=== PATIENT | female | born 1990 | race Caucasian/White ===

== ENCOUNTER 2017-09-30 13:18 | Emergency (ER) | payer SELFPAY ==
[~2017-09-30] VITALS: Ht 162.6 cm; Wt 53.0 kg
[2017-09-30 13:20] VITALS: TEMP 36.9
[2017-09-30 13:37] VITALS: O2SAT 99
[2017-09-30] MEDS ORDERED: SODIUM CHLORIDE 0.9% 1000ML 1,000 ML IV STA (13:47)
[2017-09-30 13:52] VITALS: Ht 162.6 cm; Wt 53.0 kg
[2017-09-30 14:24] LABS: BASO % 0.7 %; BASO ABS # 0.04 K/uL (0-0.2); COMPLETE YES; EOS % 3.7 %; HEMATOCRIT 41.2 % (37-47); IG% 0.2 %; LYMPH % 30.3 %; MEAN CELL VOLUME 92.2 fL (80-100); MEAN CORPUSCULAR HGB CONC 34.7 g/dl (32-36); MEAN PLATELET VOLUME 9.5 fL (7.4-10.4); MONO % 7.1 %; PLATELET COUNT 246 K/uL (130-400); RED BLOOD COUNT 4.47 M/uL (4.2-5.4); WHITE BLOOD COUNT 5.95 K/uL (4.8-10.8)
[2017-09-30 14:28] LABS: URINE APPEARANCE CLOUDY (CLEAR); URINE BILIRUBIN NEG (NEG); URINE COLOR YELLOW; URINE EPITHELIAL CELL AUTO >30 /lpf (0-5); URINE NITRITE NEG (NEG); URINE PH 7.5 (4.5-7.5); URINE SPECIFIC GRAVITY 1.015 (1.000-1.030); UROBILINOGEN NEG (NEG)
--- NOTE | 2017-09-30 14:33 | EMERGENCY ROOM VISIT NOTE ---
History First contact with patient: 13:39 Chief Complaint: ILLNESS Stated Complaint: CP, SOB, CONGESTION, JUAREZ, DIZZY History of Present Illness The patient is a 27 year old female who presents to the Emergency Room with complaints of cough and congestion for the past 3 days, now complaining of right -sided rib pain that is worse with coughing and movement, shortness of breath, and lightheadedness today. Patient states that she felt like she might pass out a few times after coughing. She states her symptoms started with upper respiratory symptoms of sinus congestion, runny nose, irritated throat, and quickly moved into her chest with a deep cough. She states the cough has been nonproductive, she denies any hemoptysis. She has had some chills, but is unsure about fevers as she does not have a thermometer. She has positive sick contacts with similar symptoms. She does have a history of pneumonia a few years ago, states that this feels the same. She is a smoker one pack per day, but states she has not had any cigarettes for the past 2 days because of her symptoms. She denies any headaches, neck pain or stiffness, back pain, abdominal pain, nausea or vomiting, diarrhea, constipation, blood in the stool, urinary symptoms, rash. She denies any exogenous estrogen use, recent long travel, leg pain or swelling, or history of blood clots. Review of Systems A complete 10 point review of systems was reviewed with the patient with pertinent positives and negatives as per history of present illness. All else were negative. Past Medical/Surgical History Previous pneumonia, no other significant medical history Social History Smoking Status: Current Every Day Smoker Current/Historical Medications Scheduled Azithromycin (Zithromax Z-Simón), 1 PKT PO UD Allergies NKA Physical Exam Vital Signs Date Time Temp Pulse Resp B/P (MAP) Pulse Ox O2 Delivery O2 Flow Rate FiO2 09/30/17 14:52 74 18 98/66 100 Room Air 09/30/17 13:44 90 09/30/17 13:37 99 Room Air 09/30/17 13:20 36.9 116 16 111/76 100 Room Air Physical Exam CONSTITUTIONAL: No acute distress, nontoxic appearing. Mildly dehydrated. Strong smell of body odor and cigarette smoke, slightly unkempt appearance. Alert and oriented X 4 with normal affect. HEENT: Normocephalic, atraumatic. Pupils equal, round and reactive to light, EOMI. TMs normal. Pharynx normal. Tacky mucous membranes. NECK: Supple, full active range of motion without discomfort. RESPIRATORY: Clear to auscultation bilaterally with no wheezing, crackles, rhonchi or stridor. Equal expansion bilaterally. CARDIOVASCULAR: Regular rate and rhythm with no murmurs, rubs or gallops. Normal peripheral perfusion. No edema. CHEST WALL: Tenderness to palpation of the anterior and lateral chest wall between ribs 3 through 7, reproduces complaint. Tenderness bilaterally along the bottom anterior edge of the rib cage. GASTROINTESTINAL: Soft, nontender, nondistended. Bowel sounds present in all quadrants. MUSCULOSKELETAL: Full range of motion of all joints without discomfort. No swelling or tenderness noted to the calves bilaterally. INTEGUMENTARY: No rash or other significant dermatologic conditions noted. NEUROLOGIC: Cranial nerves II-XII grossly intact. No focal neurologic deficits noted. Medical Decision & Procedures ER Provider Diagnostic Interpretation: CHEST 2 VIEWS ROUTINE HISTORY: Right-sided chest pain. COMPARISON: None. FINDINGS: The lungs are clear. Cardiac silhouette is normal in size. No pleural effusions. No pneumothorax. IMPRESSION: No acute process. Laboratory Results 09/30/17 13:47 Red Blood Count 4.47, Mean Corpuscular Volume 92.2, Mean Corpuscular Hemoglobin 32.0, Mean Corpuscular Hemoglobin Concent 34.7, Mean Platelet Volume 9.5, Neutrophils (%) (Auto) 58.0, Lymphocytes (%) (Auto) 30.3, Monocytes (%) (Auto) 7.1, Eosinophils (%) (Auto) 3.7, Basophils (%) (Auto) 0.7, Neutrophils # (Auto) 3.46, Lymphocytes # (Auto) 1.80, Monocytes # (Auto) 0.42, Eosinophils # (Auto) 0.22, Basophils # (Auto) 0.04 09/30/17 13:47 Test 09/30/17 13:47 09/30/17 13:55 White Blood Count 5.95 K/uL (4.8-10.8) Red Blood Count 4.47 M/uL (4.2-5.4) Hemoglobin 14.3 g/dL (12.0-16.0) Hematocrit 41.2 % (37-47) Mean Corpuscular Volume 92.2 fL (80-100) Mean Corpuscular Hemoglobin 32.0 pg (25-34) Mean Corpuscular Hemoglobin Concent 34.7 g/dl (32-36) Platelet Count 246 K/uL (130-400) Mean Platelet Volume 9.5 fL (7.4-10.4) Neutrophils (%) (Auto) 58.0 % Lymphocytes (%) (Auto) 30.3 % Monocytes (%) (Auto) 7.1 % Eosinophils (%) (Auto) 3.7 % Basophils (%) (Auto) 0.7 % Neutrophils # (Auto) 3.46 K/uL (1.4-6.5) Lymphocytes # (Auto) 1.80 K/uL (1.2-3.4) Monocytes # (Auto) 0.42 K/uL (0.11-0.59) Eosinophils # (Auto) 0.22 K/uL (0-0.5) Basophils # (Auto) 0.04 K/uL (0-0.2) RDW Standard Deviation 42.8 fL (36.4-46.3) RDW Coefficient of Variation 12.6 % (11.5-14.5) Immature Granulocyte % (Auto) 0.2 % Immature Granulocyte # (Auto) 0.01 K/uL (0.00-0.02) Anion Gap 9.0 mmol/L (3-11) Est Creatinine Clear Calc Drug Dose 115.9 ml/min Estimated GFR () 144.0 Estimated GFR (Non- 124.2 BUN/Creatinine Ratio 13.9 (10-20) Calcium Level 9.1 mg/dl (8.5-10.1) Total Bilirubin 0.3 mg/dl (0.2-1) Aspartate Amino Transf (AST/SGOT) 13 U/L (15-37) Alanine Aminotransferase (ALT/SGPT) 24 U/L (12-78) Alkaline Phosphatase 84 U/L (45-117) Total Protein 7.9 gm/dl (6.4-8.2) Albumin 4.0 gm/dl (3.4-5.0) Globulin 3.9 gm/dl (2.5-4.0) Albumin/Globulin Ratio 1.0 (0.9-2) Bedside D-Dimer 294 ng/mlFEU (0-450) Urine Color YELLOW Urine Appearance CLOUDY (CLEAR) Urine pH 7.5 (4.5-7.5) Urine Specific [place] 1.015 (1.000-1.030) Urine Protein NEG (NEG) Urine Glucose (UA) NEG (NEG) Urine Ketones NEG (NEG) Urine Occult Blood NEG (NEG) Urine Nitrite NEG (NEG) Urine Bilirubin NEG (NEG) Urine Urobilinogen NEG (NEG) Urine Leukocyte Esterase NEG (NEG) Urine WBC (Auto) 5-10 /hpf (0-5) Urine RBC (Auto) 0-4 /hpf (0-4) Urine Hyaline Casts (Auto) 1-5 /lpf (0-5) Urine Epithelial Cells (Auto) >30 /lpf (0-5) Urine Bacteria (Auto) 2+ (NEG) Urine Test NEG (NEG) Medications Administered Medications (Trade) Dose Ordered Sig/Claudy Route Start Time Stop Time Status Last Admin Dose Admin Sodium Chloride 1,000 ml @ 999 mls/hr Q1H1M STAT IV 09/30/17 13:47 09/30/17 14:47 DC 09/30/17 13:58 999 MLS/HR Ketorolac Tromethamine (Toradol Inj) 30 mg STK-MED ONCE .ROUTE 09/30/17 15:02 09/30/17 15:03 DC 09/30/17 15:08 30 MG Albuterol (Ventolin Hfa Inhaler) 60 puffs STK-MED ONCE INH 09/30/17 15:02 09/30/17 15:03 DC 09/30/17 15:08 60 PUFFS ECG Indication: chest pain, SOB/dyspnea, tachycardia Rate (beats per minute): 89 Rhythm: normal sinus Findings: no acute ischemic change, no ectopy Comparison ECG Date: no prior available Medical Decision CC: Patient presenting with complaint of cough, right-sided chest pain, shortness of breath Interpretation of Labs: No leukocytosis, no anemia, no significant electrolyte abnormalities, normal renal function, normal liver enzymes. Negative d-dimer. UA more consistent with contamination than infection. Differential Diagnosis: Includes, but not limited to viral URI, bronchitis, pneumonia, pulmonary embolism, pneumothorax, musculoskeletal pain, costochondritis, pleurisy, among others. Medication Reconciliation: I attest that I have personally reviewed the patient' s current medication list. Vital signs review: I reviewed the patient's vital signs and interpret them as follows: T: Afebrile; BP: Normotensive; HR: Tachycardic; RR: Within normal limits; Pulse Ox: Within normal limits on room air. Blood pressure screening: The patient was found to have normal blood pressure on screening and does not require follow-up for repeat blood pressure check. Summary: Patient was evaluated at bedside, history and physical exam performed. Patient is alert and in no acute distress, resting comfortably in the stretcher , no obvious signs of increased respiratory effort. Patient does have reproducible right-sided chest wall tenderness with palpation. Lungs are clear. Given the patient's precipitating symptoms of URI illness, I feel PE is less likely, however I am unable to apply the PERC rule due to tachycardia, therefore d-dimer was performed. Orders were placed at bedside for labs, UA and urine , IV fluids for hydration, IV Toradol for pain, EKG, chest x-ray to evaluate for pneumonia. Patient discussed with Dr. Mccormack, who agrees with my assessment and plan. Labs reviewed as above, no acute abnormalities. POC d-dimer is negative. EKG shows NSR with no acute ischemic changes noted. Chest x-ray is clear with no evidence of pneumonia. Patient reassessed multiple times throughout ED stay, patient states she is feeling a little bit better after Toradol and albuterol inhaler. Her tachycardia is resolved after IV fluids. I discussed all results with the patient and plan for discharge home, I encouraged her to follow up with the PCP, and she states she does not have one because she does not have any insurance. I discussed with the patient that she could follow up in an urgent care, or she should return to the emergency department for any persistent or worsening symptoms, and discussed strict criteria for return. Patient was counseled on smoking cessation. Due to her history of heavy smoking , she was placed on a Z-Simón, prescription sent to pharmacy. She was also sent home with an albuterol inhaler and instructed on its use. The patient verbalized understanding of all discharge instructions and plan. The patient was discharged home in stable condition and ambulatory. Impression Primary Impression: Costochondritis Additional Impression: Bronchitis, acute Departure Information Dispostion Home / Self-Care Condition GOOD Prescriptions Azithromycin (ZITHROMAX Z-SIMÓN) 250 Mg Tab 1 PKT PO UD for 5 Days, #6 TAB Prov: Yomaira Esparza CRNP 09/30/17 Referrals No Doctor, Assigned (PCP) Patient Instructions ED Upper Resp Infec Abx Tx, My [facility] Additional Instructions You have been evaluated in the emergency department for your cough and chest pain. There is no evidence of pneumonia on your chest x-ray. You are being placed on antibiotics because you are a smoker and at higher risk for infection. You have been prescribed a Z-Simón, which is an antibiotic to be taken for the next 5 days, take as directed on the packaging. All antibiotics have the potential to cause diarrhea. Stop this medication and contact a medical provider if you were to develop any significant adverse side effects including: wheezing, shortness of breath, passing out, vomiting, or a diffuse rash. Always take antibiotics as directed and COMPLETE the ENTIRE course regardless of the improvement of your symptoms. Use the albuterol inhaler TWO puffs every 4 hours as needed for cough, wheezing , chest tightness. You should also use this before bed to help prevent coughing so that you can sleep better at night. For chest pain, you can use the following [id number] medicines (if >12 yo) : - Regular strength (325mg/tab) Tylenol (acetaminophen) 2 tabs every 4-6 hours as needed. Do not exceed 10 tablets in a 24 hour period. Avoid taking more than 3000 mg of Tylenol per day. This includes any other sources of acetaminophen you may take on a regular basis. - Regular strength (200 mg/tab) Advil (ibuprofen) 3 tabs every 6-8 hours as needed. Do not exceed a dose of 2400 mg per day. - For best results, alternate dosing of Tylenol and Advil. Apply heating pad to your right side of your chest to help with discomfort. Drink plenty of fluids to stay well hydrated. Please follow-up with your PCP or at an urgent care in the next few days to be rechecked if your symptoms are not getting any better. Please return to the emergency department if your symptoms worsen over the next 2-3 days despite treatment course outlined above. Return to the emergency department if you develop the following symptoms of: inability to swallow solids , liquids, or drool; excessive wheezing or inability to catch your breath; worsening chest pain, coughing up blood, severe dizziness or passing out; fever or pain that becomes unmanageable with [id number] medications; or any other concerns. Work Instructions Return To Work: 3 days Problem Qualifiers Additional Impression: Bronchitis, acute Bronchitis organism: unspecified organism Qualified Codes: J20.9 - Acute bronchitis, unspecified
[2017-09-30] MEDS ORDERED: KETOROLAC TROMETHAMINE 30 MG/ML VIAL IV STA (14:37)
--- NOTE | 2017-09-30 14:37 | DIAGNOSTIC IMAGING REPORT ---
CHEST 2 VIEWS ROUTINE HISTORY: Right-sided chest pain. COMPARISON: None. FINDINGS: The lungs are clear. Cardiac silhouette is normal in size. No pleural effusions. No pneumothorax. IMPRESSION: No acute process. Electronically signed by: Prudencio Freeman M.D. 09/30/2017 2:36 PM Dictated Date/Time: 09/30/2017 2:34 PM
[2017-09-30 14:40] LABS: BUN/CREATININE RATIO 13.9 (10-20); CALCIUM 9.1 mg/dl (8.5-10.1); CREATININE 0.61 mg/dl (0.60-1.20); POTASSIUM 3.4 mmol/L (3.5-5.1)
[2017-09-30 14:46] LABS: MANUAL MICROSCOPIC REQUIRED? NO; REVIEW REQ? NO
[2017-09-30 14:52] VITALS: BP 98/66; PULSE 74; O2SAT 100
[2017-09-30] MEDS ORDERED: ALBUTEROL HFA 8 GM INHALER INH ONE ×2 (15:00→15:02)
[2017-09-30] MEDS ORDERED: KETOROLAC TROMETHAMINE 30 MG/ML VIAL ONE (15:02)
[2017-09-30] MEDS ORDERED: AZITTAB PO (16:13)
== END 2017-09-30 16:44 | disposition home or self-care (01) ==
LOC: C.EDB 13:20 → C.EDC 16:44
DX: M94.0 Chondrocostal junction syndrome [Tietze] (principal); J20.9 Acute bronchitis, unspecified; F17.210 Nicotine dependence, cigarettes, uncomplicated

== ENCOUNTER 2017-11-02 14:22 | Emergency (ER) | payer SELFPAY ==
[~2017-11-02] VITALS: Ht 160 cm; Wt 52.0 kg
[2017-11-02 14:25] VITALS: TEMP 36.4; Ht 160 cm; Wt 52.0 kg
[2017-11-02] MEDS ORDERED: OXYCODONE HCL IR 5 MG TAB (IMMEDIATE RELEASE) PO STA (14:31)
[2017-11-02] MEDS ORDERED: BACITRACIN OINT 15 GM TUBE EXT ONE (14:45)
[2017-11-02] MEDS ORDERED: OXYC1TAB3 PO (15:03)
[2017-11-02 15:19] VITALS: BP 92/67; PULSE 70; O2SAT 98
--- NOTE | 2017-11-02 16:24 | EMERGENCY ROOM VISIT NOTE ---
History Report prepared by Darryl: Angie Doyle Under the Supervision of: Dr. Oscar Apodaca M.D. First contact with patient: 14:27 Chief Complaint: BURN (MAJOR) Stated Complaint: BURN ON HANDS History of Present Illness The patient is a 27 year old female who presents to the Emergency Room with complaints of an episode of burn to the hands [employer]. The patient was cooking traore on the stove. She jerked the oreilly and some traore grease spilled onto her right hand. She did get some on her left hand. She denies any fever or vomiting. She has had bronchitis in the past. She is otherwise healthy. Her tetanus is up to date. Source of History: patient Onset: [employer] Position: hand (right) Quality: other (burn) Timing: other (episodic) Associated Symptoms: No fevers, No vomiting Review of Systems See HPI for pertinent positives & negatives. A total of 10 systems reviewed and were otherwise negative. Past Medical & Surgical Medical Problems: (1) Bronchitis Family History Cancer Heart disease Social History Smoking Status: Current Every Day Smoker Occupation Status: employed Current/Historical Medications Scheduled PRN Oxycodone Ir (Roxicodone Ir), 5 MG PO Q4H PRN for Pain Allergies Coded Allergies: No Known Allergies (Unverified , 11/02/17) Physical Exam Vital Signs Date Time Temp Pulse Resp B/P (MAP) Pulse Ox O2 Delivery O2 Flow Rate FiO2 11/02/17 15:19 70 16 92/67 98 11/02/17 14:38 97 Room Air 11/02/17 14:25 36.4 103 24 122/96 97 Room Air Physical Exam Constitutional: Vital signs reviewed. Eyes: Pupils are equal round reactive to light. Conjunctiva are noninjected. ENT: Pharynx is clear without erythema or exudate. Mucous membranes are moist. Neck supple without meningeal signs. Respiratory: Clear to auscultation bilaterally. Breath sounds are equal bilaterally. Cardiovascular: Regular rate and rhythm. No rubs or gallops. Musculoskeletal: Right hand 2nd, 3rd, and 4th fingers with noncircumferential partial thickness aviles to the dorsal aspect with ruptured blisters over the 2nd , 3rd, and 4th digits. Minor splashes to the left hand without blistering. Integumentary: See above. Neurological: The patient is awake and alert. No focal deficits. Psychiatric: Anxious, tearful. Medical Decision & Procedures Medications Administered Medications (Trade) Dose Ordered Sig/Claudy Route Start Time Stop Time Status Last Admin Dose Admin Oxycodone HCl (Roxicodone Immediate Rel Tab) 5 mg NOW STAT PO 11/02/17 14:31 11/02/17 14:33 DC 11/02/17 14:36 5 MG Bacitracin (Bacitracin Oint) 1 appln NOW ONCE EXT 11/02/17 14:45 11/02/17 14:46 DC 11/02/17 14:41 1 APPLN ED Course 1429: The patient was evaluated in room A3. A complete history and physical exam was performed. 1431: Oxycodone HCl 5 mg PO. 1437: I reevaluated the patient. Her hand is now soaking in cold water. She feels a lot better and is more calm. She does want us to cut the rings off. 1445: Bacitracin 1 appln EXT. 1500: I reevaluated the patient. She is feeling much better. The rings have been cut off. She will follow up with her doctor in 24-48 hours. I gave her precautions regarding oxycodone. She verbalized agreement and understanding. She will be discharged home with nonadherent dressings and bacitracin. Medical Decision This is a 27-year-old female presents with thermal aviles to her hands. I did perform a limited focused review of portions of the patient's old chart on the electronic medical record. The patient has had no recent pertinent visits to this hospital. I did evaluate the patient as noted above. She does have sternal aviles to both hands. The aviles on her left hand are very minor and do not require any attention. The right hand shows a full-thickness aviles with ruptured blisters over the dorsums of the second to fourth digits. The aviles are not circumferential. She is neurovascularly intact. I did feel debridement of the blisters was indicated at this time. The patient's hand was placed in cold water and she did feel significant relief with this. She was also given an OxyIR. Her tetanus is up-to-date. She was given bacitracin and wound dressings to go home with. She will follow up with her doctor within 24-48 hours for reevaluation. She was discharged with a prescription for OxyIR for breakthrough pain and given precautions regarding this medication. Her rings were removed from the second and fourth digits. [place] Drug Monitoring Program Search Results: patient reviewed within database Drug Monitoring Findings: No matching patients. Medication Reconcilliation Current Medication List: was personally reviewed by me Blood Pressure Screening Patient's blood pressure: Elevated blood pressure Blood pressure disposition: Elevated BP felt to be situational Impression Primary Impression: Partial thickness burn of right hand Scribe Attestation The scribe's documentation has been prepared under my direct and personally reviewed by me in its entirety. I confirm that the note above accurately reflects all work, treatment, procedures, and medical decision making performed by me. Departure Information Dispostion Home / Self-Care Prescriptions Oxycodone Ir (Roxicodone Ir) 5 Mg Tab 5 MG PO Q4H Y for Pain, #20 TAB Prov: Oscar Apodaca M.D. 11/02/17 Referrals No Doctor, Assigned (PCP) Forms HOME CARE DOCUMENTATION FORM, IMPORTANT VISIT INFORMATION Patient Instructions ED Burn D 2nd, My [facility] Additional Instructions You have been examined and treated today on an emergency basis only. This is not a substitute for, or an effort to provide, complete comprehensive medical care. It is impossible to recognize and treat all injuries or illnesses in a single emergency department visit. It is therefore important that you follow up closely with your physician within 24-48 hours. Call as soon as possible for an appointment. Return for worsening symptoms or if you develop fever, vomiting , pus like discharge from your fingers or any other concerning symptoms. Use bacitracin and nonadherant dressings twice a day Problem Qualifiers Primary Impression: Partial thickness burn of right hand Encounter type: initial encounter Burn of hand location: multiple sites Qualified Codes: T23.201A - Burn of second degree of right hand, unspecified site, initial encounter
== END 2017-11-02 15:20 | disposition home or self-care (01) ==
LOC: C.EDB 14:23 → C.EDA 15:20
DX: T23.141A Burn of first degree of multiple right fingers (nail), including thumb, initial encounter (principal); T23.142A Burn of first degree of multiple left fingers (nail), including thumb, initial encounter; X12.XXXA Contact with other hot fluids, initial encounter; F17.200 Nicotine dependence, unspecified, uncomplicated; Z80.9 Family history of malignant neoplasm, unspecified; Z82.49 Family history of ischemic heart disease and other diseases of the circulatory system

== ENCOUNTER → 2017-11-19 | Outpatient (CLI) | payer OTHER ==
[~2017-11-19] MED LIST: BUSP-8 PO; HYDR-5688 PO; LORA-741 PO; OXYC-90 PO
== END | disposition home or self-care (01) ==
LOC: C.LABSPEC 17:35
PROVIDERS: ATTEND Physician Assistant
DX: R39.9 Unspecified symptoms and signs involving the genitourinary system (principal)

== ENCOUNTER 2017-11-27 11:39 | Emergency (ER) | payer OTHER ==
[~2017-11-27] VITALS: Ht 160 cm; Wt 52.3 kg
[~2017-11-27 11:39] MED LIST changes: -BUSP-8 PO; -HYDR-5688 PO; -LORA-741 PO; -OXYC-90 PO; +OXYC1TAB3 PO
[2017-11-27 11:47] VITALS: TEMP 36.8; Ht 160 cm; Wt 52.3 kg
[2017-11-27] MEDS ORDERED: KETOROLAC TROMETHAMINE 30 MG/ML VIAL IV STA (12:33)
--- NOTE | 2017-11-27 13:52 | DIAGNOSTIC IMAGING REPORT ---
ULTRASOUND OF THE PELVIS CLINICAL HISTORY: Pelvic pain. COMPARISON STUDY: No priors. TECHNIQUE: Real-time, grayscale, and color flow sonography of the pelvis is performed both transabdominally and endovaginally. Images are reviewed in the transverse and longitudinal planes. FINDINGS: Uterus: The retroflexed uterus is normal in size and echotexture, measuring 8.5 x 3.2 x 4.2 cm. The uterus may demonstrate bicornuate/septate configuration. Endometrium: The endometrium is normal in appearance, and the endometrial stripe is normal in thickness measuring up to 0.7 cm. Ovaries: The ovaries are normal in size and morphology. The right ovary measures 2.4 x 1.5 x 1.4 cm and the left ovary measures 3.7 x 2.0 x 3.6 cm. Small follicles are seen bilaterally. Normal Doppler waveforms are shown within both ovaries. Pelvis: There is a small volume of free fluid in the cul-de-sac. No concerning adnexal lesion is seen. IMPRESSION: 1. No acute sonographic abnormality is identified in the pelvis. 2. A small volume of free fluid in the cul-de-sac is likely within physiologic limits. 3. Question bicornuate/septate uterus. Electronically signed by: Vitaliy Saul M.D. 11/27/2017 1:51 PM Dictated Date/Time: 11/27/2017 1:48 PM
[2017-11-27] MEDS ORDERED: HYDR-5688 PO (14:23)
--- NOTE | 2017-11-27 14:25 | EMERGENCY ROOM VISIT NOTE ---
History First contact with patient: 11:52 Chief Complaint: ABDOMINAL PAIN Stated Complaint: CANT URINATE, SEVERE ABD PAIN Nursing Triage Summary: "I cant pee and Im in alot of pain." States she has frequency but cant completely empty. Lower abd pain. History of Present Illness The patient is a 27 year old female who presents to the Emergency Room with complaints of not being able to empty her bladder completely. She also admits to urinary frequency but denies any dysuria or hematuria. The patient has had these problems for 6 months. She states irrigating worse. She was initially seen by her marking devices assembler who removed her IUD and she states that her symptoms that she had at the time went away except for urinary problems. She was told at that time if her symptoms persisted to return to the office. The patient went back approximately one week ago and had a urinalysis done which was negative. She has an appointment with urology next Friday. She also states that she has been getting intermittent right upper quadrant pain. She saw her PCP and has an ultrasound scheduled tomorrow for gallbladder. The patient states she is here for the urinary symptoms and not for the right upper quadrant pain. The patient denies any nausea or vomiting. The patient denies any history of kidney stones. Review of Systems 10 system review was performed and was negative unless stated otherwise history of present illness. Past Medical/Surgical History Medical Problems: (1) Bronchitis Family History Cancer Heart disease Social History Smoking Status: Current Every Day Smoker Occupation Status: employed Current/Historical Medications No Active Prescriptions or Reported Meds Physical Exam Vital Signs Date Time Temp Pulse Resp B/P (MAP) Pulse Ox O2 Delivery O2 Flow Rate FiO2 11/27/17 13:42 96 16 116/76 98 Room Air 11/27/17 11:47 36.8 104 17 102/64 100 Room Air Physical Exam GENERAL: 27-year-old white female appears in no acute distress. MENTAL Status: Alert and oriented 3. MOUTH: Mucosa is moist NECK: Supple, no lymphadenopathy noted. No carotid bruits noted. LUNGS: Clear auscultation without wheezes rales or rhonchi. CARDIAC: Regular rate and rhythm without murmur. Pulses is full and equal throughout. BACK: No CVA tenderness noted. ABDOMEN: Positive bowel sounds all 4 quadrants. Soft, patient has tenderness palpation in the right upper quadrant but no positive Domingo sign. She also has tenderness to palpation over the suprapubic region as well as a left pelvic region. No organomegaly or masses noted. EXTREMITIES: No cyanosis or edema noted. Medical Decision & Procedures ER Provider Diagnostic Interpretation: ULTRASOUND OF THE PELVIS CLINICAL HISTORY: Pelvic pain. COMPARISON STUDY: No priors. TECHNIQUE: Real-time, grayscale, and color flow sonography of the pelvis is performed both transabdominally and endovaginally. Images are reviewed in the transverse and longitudinal planes. FINDINGS: Uterus: The retroflexed uterus is normal in size and echotexture, measuring 8.5 x 3.2 x 4.2 cm. The uterus may demonstrate bicornuate/septate configuration. Endometrium: The endometrium is normal in appearance, and the endometrial stripe is normal in thickness measuring up to 0.7 cm. Ovaries: The ovaries are normal in size and morphology. The right ovary measures 2.4 x 1.5 x 1.4 cm and the left ovary measures 3.7 x 2.0 x 3.6 cm. Small follicles are seen bilaterally. Normal Doppler waveforms are shown within both ovaries. Pelvis: There is a small volume of free fluid in the cul-de-sac. No concerning adnexal lesion is seen. IMPRESSION: 1. No acute sonographic abnormality is identified in the pelvis. 2. A small volume of free fluid in the cul-de-sac is likely within physiologic limits. 3. Question bicornuate/septate uterus. Electronically signed by: Vitaliy Saul M.D. 11/27/2017 1:51 PM Laboratory Results Test 11/27/17 12:09 Urine Color YELLOW Urine Appearance CLEAR (CLEAR) Urine pH 8.0 (4.5-7.5) Urine Specific Barnes 1.007 (1.000-1.030) Urine Protein NEG (NEG) Urine Glucose (UA) NEG (NEG) Urine Ketones NEG (NEG) Urine Occult Blood NEG (NEG) Urine Nitrite NEG (NEG) Urine Bilirubin NEG (NEG) Urine Urobilinogen NEG (NEG) Urine Leukocyte Esterase NEG (NEG) Medications Administered Medications (Trade) Dose Ordered Sig/Claudy Route Start Time Stop Time Status Last Admin Dose Admin Ketorolac Tromethamine (Toradol Inj) 30 mg NOW STAT IV 11/27/17 12:33 11/27/17 12:36 DC 11/27/17 12:40 30 MG ED Course The patient was evaluated. Urinalysis was ordered. Bladder scan following urination was ordered. Residual volume was 0. The patient was informed of the findings. The patient broke down in tears stating why she was having the sensation of having to go to the bathroom all the time and of the pelvic pain. She then informed me that she is also scheduled for a pelvic ultrasound next week. I spoke with the patient and stated that I could order the pelvic ultrasound today which may help us in her diagnosis. She was in agreement. She was also given Toradol 30 mg IV for pain. Urinalysis was negative. 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 The patient was discharged home in stable condition. Medical Decision Pharyngeal diagnoses include pyelonephritis, UTI, kidney stone, interstitial cystitis, ovarian cysts, PID DEBORAH Drug Monitoring Program Search Results: patient reviewed within database Medication Reconcilliation Current Medication List: was personally reviewed by me Blood Pressure Screening Patient's blood pressure: Normal blood pressure Impression Primary Impression: Urinary frequency Additional Impression: Pelvic pain Departure Information Dispostion Home / Self-Care Condition GOOD Prescriptions Hydrocodone/Acetaminophen 5MG/325MG (Full[place] 5MG/325MG) Tab 1-2 TABLET PO Q6 Y for Pain, #14 TAB For Initial Treatment Prov: Cecily Govea PA-C 11/27/17 Referrals Rosa Hernandez (PCP) Forms HOME CARE DOCUMENTATION FORM, IMPORTANT VISIT INFORMATION Patient Instructions My QFPay Additional Instructions Ibuprofen 400 mg every 6 hours with food for pain. Take [place] as needed for more severe pain. Do not drive while taking the Full[place]. Keep scheduled appointment with urology next Friday and your appointment for gallbladder ultrasound on Friday. Problem Qualifiers
[2017-11-27 14:37] VITALS: BP 118/74; PULSE 76; O2SAT 98
== END 2017-11-27 14:37 | disposition home or self-care (01) ==
LOC: C.EDB 11:41 → C.EDC 14:37
DX: R35.0 Frequency of micturition (principal); R10.2 Pelvic and perineal pain; F17.200 Nicotine dependence, unspecified, uncomplicated; Z80.9 Family history of malignant neoplasm, unspecified; Z82.49 Family history of ischemic heart disease and other diseases of the circulatory system

== ENCOUNTER → 2017-11-28 | Outpatient (CLI) | payer OTHER ==
[~2017-11-28] MED LIST changes: +HYDR-5688 PO; -OXYC1TAB3 PO
--- NOTE | 2017-11-28 09:24 | DIAGNOSTIC IMAGING REPORT ---
BILIARY ULTRASOUND CLINICAL HISTORY: R10.11,R63.0,R11.0 right upper quadrant abdominal pain COMPARISON STUDY: No previous studies for comparison. FINDINGS: The pancreas appears sonographically normal area the gallbladder appears sonographically normal. The liver appears sonographically normal. There is no ductal dilatation. The common bile duct measures 2 mm. There is no right-sided hydronephrosis. IMPRESSION: Normal biliary ultrasound. Electronically signed by: Fracisco Portillo M.D. 11/28/2017 9:23 AM Dictated Date/Time: 11/28/2017 9:22 AM
== END | disposition home or self-care (01) ==
LOC: C.ULTR 08:29
PROVIDERS: ATTEND Nurse Practitioner Family
DX: R10.11 Right upper quadrant pain (principal); R63.0 Anorexia; R11.0 Nausea

== ENCOUNTER → 2017-12-04 | Outpatient (CLI) | payer OTHER | END | disposition home or self-care (01) | LOC: C.LABSPEC 17:46 | PROVIDERS: ATTEND Physician Assistant | DX: Z11.3 Encounter for screening for infections with a predominantly sexual mode of transmission (principal) ==

== ENCOUNTER → 2017-12-04 | Outpatient (CLI) | payer OTHER | END | disposition home or self-care (01) | LOC: C.PAPS 08:50 | PROVIDERS: ATTEND Physician Assistant | DX: Z12.4 Encounter for screening for malignant neoplasm of cervix (principal) ==

== ENCOUNTER → 2017-12-10 | Outpatient (CLI) | payer OTHER ==
--- NOTE | 2017-12-10 15:42 | MAMMOGRAPHY REPORT ---
BILATERAL DIGITAL DIAGNOSTIC MAMMOGRAM TOMOSYNTHESIS WITH CAD AND TARGETED RIGHT ULTRASOUND: 8 CLINICAL HISTORY: 27-year-old woman presents with a palpable lump in the right upper outer quadrant. She reports she has noticed a lump for approximately 8 years and it does not appear changed. No ski n thickening or erythema. No nipple discharge. Family history of breast cancer on her mother's side . TECHNIQUE: Bilateral breast tomosynthesis in addition to standard 2D mammography was performed. Curre nt study was also evaluated with a Computer Aided Detection (CAD) system. COMPARISON: Comparison is made to exam dated: 12/10/2017 ultrasound - [facility]. BREAST COMPOSITION: The tissue of both breasts is heterogeneously dense, which may obscure small mas ses. FINDINGS: First targeted ultrasound was performed in the upper outer quadrant of the right breast in the area of palpable lump pointed out by the patient. On ultrasound, architectural distortion was a ppreciated in real-time scanning. There is an isoechoic slightly hypoechoic ill-defined mass with as sociated architectural distortion and internal vascularity. Given the ill-defined nature of this les ion it is difficult to obtain accurate measurements but it is at least 12.8 x 6.6 x 11.6 mm. Given t he ill-defined nature and architectural distortion, bilateral mammography was then performed. There is a large focal area of architectural distortion in the upper outer posterior right breast, wh ich a lines with a palpable skin marker was placed overlying the palpable abnormality directed by the patient. The area of distortion measures approximately 4 cm in diameter. No associated microcalcif ications are identified. No other focal areas of distortion, asymmetries, masses or suspicious calci fications are seen bilaterally. The area of distortion is indeterminate and could represent a radial scar although carcinoma cannot b e completely excluded. Definitive characterization with ultrasound guided core biopsy is recommended . Additional sonographic evaluation performed in the right axilla demonstrates a few lymph nodes. C ortical thickness ranges from 0.8 mm up to 3.3 mm, which is equivocal. Given that all of the lymph n odes have the same sonographic appearance, will defer any lymph node sampling until pathology results are available, as this would likely be needed if the lesion is a radial scar. IMPRESSION: ACR BI-RADS CATEGORY 4: SUSPICIOUS, TARGETED ULTRASOUND ACR BI-RADS CATEGORY 4: SUSPICIO US 1. Ultrasound-guided core biopsy is recommended for a large focal area of architectural distortion/m ass seen both mammographically and on ultrasound in the right 10:00 breast, and correlates with a pal pable lump pointed out by the patient. 2. A few lymph nodes are identified in the right axilla with cortical thickness at the upper limits of normal. If the pathology results are radial scar, lymph node sampling will not be needed and thes e lymph nodes can be followed with ultrasound, but further recommendations will be made once results are available. 3. No mammographic evidence of malignancy in the left breast. These results and recommendations were discussed with the patient at the time of the exam. She tenta tively scheduled the right breast biopsy prior to leaving our department. Approximately 10% of breast cancers are not detected with mammography. A negative mammographic report should not delay biopsy if a clinically suggestive mass is present. Felicia Mccollum M.D. ay/:12/10/2017 15:08:49 Emission Technician: Shanna PATEL(Ania)(M), [facility] letter sent: Abnormal 4/5 BI-RADS Code: ACR BI-RADS Category 4: Suspicious Ultrasound BI-RADS: ACR BI-RADS Category 4: Suspici ous
== END | disposition home or self-care (01) ==
LOC: C.MAMM 13:50
PROVIDERS: ATTEND Physician Assistant
DX: N63.11 Unspecified lump in the right breast, upper outer quadrant (principal)

== ENCOUNTER → 2017-12-19 | Outpatient (CLI) | payer OTHER ==
--- NOTE | 2017-12-19 08:39 | Discharge Instructions ---
Discharge Instructions Procedure Procedure Date: Dec 19, 2017. Reason for visit: R Palpable Mass & Distortion. Discharge Discharge Date: Dec 19, 2017. Discharge Diagnosis: status post breast biopsy Instructions Activity Recommendations: Additional Limitations (see below) Return to School/Work: no limitations Recommended Home Diet: No Limitations Provider Instructions: ACTIVITY RECOMMENDATIONS: * No lifting, pushing, pulling or exercising the affected side for three days. RETURN TO SCHOOL/WORK: * You may return to work/school after the procedure, but do not perform any strenuous activities for 24 to 48 hours. MEDICATIONS: * Tylenol (two 325 mg) every four to six hours if needed for mild pain (if not allergic to Tylenol). DIET: * Resume previous diet. SPECIAL CARE INSTRUCTIONS: * Keep biopsy site dry for 24 hours. May shower after 24 hours, but do not soak (bathe) incision. * May remove Tegaderm (plastic patch) tomorrow AFTER showering. * Leave the steri-strips on for one week. Allow the steri-strips to fall off by themselves. If not off after one week, you may remove them. You may place a Bandaid crosswise over the strips, if desired. * Apply ice 10 minutes on and 10 minutes off as needed. * Wear a bra at bedtime to sleep more comfortably for 2-3 days. * Your referring physician should have the results after approximately 5 to 7 business days. * Call for unusual bleeding, fever, drainage, etc or if you have any questions call during normal business hours or after hours call Dr Belle, . FOLLOW UP VISIT: Follow-up with Referring Physician as scheduled. Allergies Coded Allergies: No Known Allergies (Unverified , 11/27/17) Mehul Barahona Recommendations: Call your doctor if: * Temperature above 101 degrees * Pain not relieved by pain medicine ordered * There is increased drainage or redness from any incision * You have any unanswered questions or concerns. Your Doctors Instructions noted above were prepared by provider Kristy Belle. Patient Signature Section: Patient Instructions Signature Page Yomaira Chamberlain Patient (or Guardian) Signature/Date: I have read and understand the instructions given to me by my caregivers. Caregiver/RN/Doctor Signature/Date: The above-named patient and/or guardian has received patient instructions on this date. + Original Patient Signature Page (only) stays with chart. Please make copy for patient.
--- NOTE | 2017-12-22 07:38 | MAMMOGRAPHY REPORT ---
THIS REPORT HAS BEEN AMENDED. ULTRASOUND GUIDED BIOPSY RIGHT BREAST: 12/19/2017 CLINICAL HISTORY: Focal architectural distortion in the right 10:00 breast. PATIENT CONSENT: The procedure, risks and benefits were discussed with the patient and informed writt en consent was obtained. A timeout was performed immediately prior to the procedure. PROCEDURE DESCRIPTION: With ultrasound guidance, aseptic technique, and lidocaine as the local anesth etic (1% lidocaine to anesthetize the skin and 1% lidocaine with epinephrine to anesthetize the deepe r tissues), the focal architectural distortion in the right 10:00 breast was sampled 5 times with a 1 4-gauge Achieve biopsy needle. Immediately thereafter, with ultrasound guidance, aseptic technique, and lidocaine as the local anesthetic, a metallic localizer clip was placed at the biopsy site. Dire ct pressure was applied to the site immediately post procedure and hemostasis was achieved. Postproc edure unilateral mammograms were performed to confirm clip placement. The patient tolerated the proce dure without complication. She was given wound care instructions. The specimens were sent to patholo gy for analysis. COMPARISON: Comparison is made to exams dated: 12/10/2017 mammogram and 12/10/2017 ultrasound - [facility]. IMPRESSION: ULTRASOUND GUIDED BIOPSY Ultrasound guided core needle biopsy of the focal architectural distortion in the right 10:00 breast, with clip placement. The patient will receive pathology results from her referring provider. Kristy Belle M.D. ah/:12/19/2017 08:40:42 Analyst Microbiology Lab: Tito PATEL(R)(M), [facility] AMENDMENT: 12/23/2017 Felicia Mccollum M.D. Pathology results from the ultrasound-guided core biopsy of a palpable area of architectural distorti on in the right 10:00 breast yielded microscopic findings compatible with radial scar. Negative for in situ and invasive carcinoma. Although no atypia or DCIS was seen at pathology given the pathologi c finding of a radial scar correlating with a mammographic distortion, surgical consultation for surg ical excision is recommended. These recommendations were discussed with Jordon Orlando PA-C, on 12/23/2017.
--- NOTE | 2017-12-22 07:41 | MAMMOGRAPHY REPORT ---
UNILATERAL RIGHT DIGITAL DIAGNOSTIC MAMMOGRAM TOMOSYNTHESIS: 12/19/2017 CLINICAL HISTORY: Status post right breast biopsy. TECHNIQUE: Breast tomosynthesis in addition to standard 2D mammography was performed. Postprocedura l right CC and ML tomosynthesis images were obtained. COMPARISON: Comparison is made to exams dated: 12/10/2017 ultrasound and 12/10/2017 mammogram - [facility]. BREAST COMPOSITION: The tissue of the right breast is heterogeneously dense, which may obscure small masses. FINDINGS: A new biopsy marker clip is seen at the site of the architectural distortion in the right 10:00 breast. No significant postbiopsy hematoma is seen. IMPRESSION: POST PROCEDURE IMAGING FOR MARKER PLACEMENT New biopsy marker clip status post right breast biopsy. Pathology results are pending. Approximately 10% of breast cancers are not detected with mammography. A negative mammographic report should not delay biopsy if a clinically suggestive mass is present. Kristy Belle M.D. ah/:12/19/2017 08:48:42 Gse Mechanic: Tito PATEL(Ania)(Matt), [facility] BI-RADS Code: Post Procedure Imaging For Marker Placement
== END | disposition home or self-care (01) ==
LOC: C.MAMM 08:06
PROVIDERS: ATTEND Physician Assistant
DX: R92.8 Other abnormal and inconclusive findings on diagnostic imaging of breast (principal)

== ENCOUNTER 2018-01-12 06:43 | Emergency (ER) | payer OTHER ==
[~2018-01-12] VITALS: Ht 160 cm; Wt 54.0 kg
[~2018-01-12 06:43] MED LIST changes: +BUSP-8 PO; +LORA-741 PO
[2018-01-12 06:47] VITALS: Ht 160 cm; Wt 54.0 kg
[2018-01-12] MEDS ORDERED: SODIUM CHLORIDE 0.9% 1000ML 1,000 ML IV STA (07:01)
[2018-01-12] MEDS ORDERED: KETOROLAC TROMETHAMINE 30 MG/ML VIAL IV STA (07:01)
[2018-01-12] MEDS ORDERED: ONDANSETRON INJ 2 MG/ML 2 ML VIAL IV STA (07:04)
--- NOTE | 2018-01-12 07:09 | EMERGENCY ROOM VISIT NOTE ---
History First contact with patient: 06:54 Chief Complaint: VOMITING Stated Complaint: VOMITING,HOT/COLD,SEVERE HEADACHE/NECK PAIN Nursing Triage Summary: Pt states surgery on right breast on Fri by Dr. Stanley. H/A, n/v since 0400, "trouble thinking straight", neck pain. Pt states had been taking Hydrocodone, took last dose at 1900 last night. Pt states scheduled for endoscopy tomorrow for persistant RUQ pain. History of Present Illness The patient is a 27 year old female who presents to the Emergency Room via private vehicle accompanied by male with complaints of "vomiting, hot/cold, severe headache/neck pain". The patient states that this past Friday she underwent surgical extraction of a radial scar from the right breast. She notes that she has been doing well up until 4 AM this morning she was appropriate woken from sleep with vomiting, chills/feeling warm, and headache and neck pain. She notes the headache in the frontal regions as well as the posterior aspect of her head. She rates the overall pain as a 10/10. She has been taking hydrocodone as previously prescribed with minimal relief. She denies any chance of . She notes that until 4 AM she was doing well. Review of Systems A complete 10-point Review of Systems was discussed with the patient, with pertinent positives and negatives listed in the History of Present Illness. All remaining Review of Systems questions can be considered negative unless otherwise specified. Past Medical/Surgical History Medical Problems: (1) Bronchitis Family History Cancer Heart disease Social History Smoking Status: Current Every Day Smoker Occupation Status: employed Current/Historical Medications Scheduled Buspirone Hcl (Buspirone Hcl), 2 TAB PO HS Scheduled PRN Hydrocodone/Acetaminophen 5MG/325MG ([place] 5MG/325MG), 1-2 TABLETS PO Q4 PRN for Pain Lorazepam (Ativan), 0.5 MG PO TID PRN for Anxiety Physical Exam Vital Signs Date Time Temp Pulse Resp B/P (MAP) Pulse Ox O2 Delivery O2 Flow Rate FiO2 01/12/18 06:47 36.7 82 20 109/67 98 Room Air Physical Exam VITAL SIGNS - Vital signs and nursing notes were reviewed. Stable. Afebrile. GENERAL -27 -year- old female appearing her stated age who is in no acute distress. Communicates well with provider and answers questions appropriately. SKIN - Without rashes. No petechial rashes. HEAD - NC/AT. EYES - PERRL with EOMI bilaterally. Sclera anicteric. EARS - No deformities of external structures noted on gross examination bilaterally. No pain elicited with palpation of the tragus bilaterally. External auditory canals without discharge or otorrhea. Tympanic membranes pearly lainez without retraction or bulging. No fluid or purulent material visualized behind the TM. Handle of malleus, umbo, cone of light, pars tensa/ flaccid all easily visualized. NOSE - Midline and without cyanosis. No epistaxis or purulent drainage noted. MOUTH/OROPHARYNX - Without perioral cyanosis. NECK - Neck with FROM. Supple to palpation. No nuchal rigidity. LUNGS - Chest wall symmetric without accessory muscle use, intercostals retractions, or central cyanosis. Normal vesicular breath sounds CTA B/L. No wheezes, rales, or rhonchi appreciated. CARDIAC - RRR with S1/S2. No murmur, rubs, or gallops appreciated. ABDOMEN - Abdominal contour normal without pulsations or visible masses. BS normoactive all four quadrants. No tenderness, palpable masses, hepatosplenomegaly, or ascites noted. EXTREMITIES - No clubbing or peripheral cyanosis. No pretibial edema present. +5 /5 strength noted in UE/LE bilaterally. NEUROLOGIC - Cranial nerves II through XII grossly intact. Sensory intact to light touch throughout PSYCH - A&O, and cooperates fully with examiner. Pt is very pleasant and interacts well with examiner. Medical Decision & Procedures Laboratory Results 01/12/18 07:10 Red Blood Count 4.15, Mean Corpuscular Volume 92.5, Mean Corpuscular Hemoglobin 32.8, Mean Corpuscular Hemoglobin Concent 35.4, Mean Platelet Volume 9.5, Neutrophils (%) (Auto) 53.7, Lymphocytes (%) (Auto) 37.5, Monocytes (%) (Auto) 6.3, Eosinophils (%) (Auto) 1.9, Basophils (%) (Auto) 0.4, Neutrophils # (Auto) 4.48, Lymphocytes # (Auto) 3.13, Monocytes # (Auto) 0.53, Eosinophils # (Auto) 0.16, Basophils # (Auto) 0.03 01/12/18 07:10 Test 01/12/18 07:00 01/12/18 07:09 01/12/18 07:10 Urine Color YELLOW Urine Appearance TURBID (CLEAR) Urine pH 7.5 (4.5-7.5) Urine Specific [place] 1.015 (1.000-1.030) Urine Protein NEG (NEG) Urine Glucose (UA) NEG (NEG) Urine Ketones NEG (NEG) Urine Occult Blood NEG (NEG) Urine Nitrite NEG (NEG) Urine Bilirubin NEG (NEG) Urine Urobilinogen NEG (NEG) Urine Leukocyte Esterase NEG (NEG) Urine WBC (Auto) 5-10 /hpf (0-5) Urine RBC (Auto) 0-4 /hpf (0-4) Urine Hyaline Casts (Auto) /lpf (0-5) Urine Epithelial Cells (Auto) >30 /lpf (0-5) Urine Bacteria (Auto) 4+ (NEG) Urine Pathogenic Casts /lpf (0) Urine Test NEG (NEG) Influenza Type A Antigen Neg for Influ A (NEG) Influenza Type B Antigen Neg for Influ B (NEG) White Blood Count 8.35 K/uL (4.8-10.8) Red Blood Count 4.15 M/uL (4.2-5.4) Hemoglobin 13.6 g/dL (12.0-16.0) Hematocrit 38.4 % (37-47) Mean Corpuscular Volume 92.5 fL (80-100) Mean Corpuscular Hemoglobin 32.8 pg (25-34) Mean Corpuscular Hemoglobin Concent 35.4 g/dl (32-36) Platelet Count 229 K/uL (130-400) Mean Platelet Volume 9.5 fL (7.4-10.4) Neutrophils (%) (Auto) 53.7 % Lymphocytes (%) (Auto) 37.5 % Monocytes (%) (Auto) 6.3 % Eosinophils (%) (Auto) 1.9 % Basophils (%) (Auto) 0.4 % Neutrophils # (Auto) 4.48 K/uL (1.4-6.5) Lymphocytes # (Auto) 3.13 K/uL (1.2-3.4) Monocytes # (Auto) 0.53 K/uL (0.11-0.59) Eosinophils # (Auto) 0.16 K/uL (0-0.5) Basophils # (Auto) 0.03 K/uL (0-0.2) RDW Standard Deviation 43.3 fL (36.4-46.3) RDW Coefficient of Variation 12.9 % (11.5-14.5) Immature Granulocyte % (Auto) 0.2 % Immature Granulocyte # (Auto) 0.02 K/uL (0.00-0.02) Prothrombin Time 10.3 SECONDS (9.0-12.0) Prothromb Time International Ratio 1.0 (0.9-1.1) Activated Partial Thromboplast Time 24.5 SECONDS (21.0-31.0) Partial Thromboplastin Ratio 0.9 Anion Gap 9.0 mmol/L (3-11) Est Creatinine Clear Calc Drug Dose 107.5 ml/min Estimated GFR () 141.0 Estimated GFR (Non- 121.7 BUN/Creatinine Ratio 20.6 (10-20) Calcium Level 8.8 mg/dl (8.5-10.1) Magnesium Level 2.1 mg/dl (1.8-2.4) Total Bilirubin 0.4 mg/dl (0.2-1) Aspartate Amino Transf (AST/SGOT) 20 U/L (15-37) Alanine Aminotransferase (ALT/SGPT) 47 U/L (12-78) Alkaline Phosphatase 71 U/L (45-117) Total Protein 7.3 gm/dl (6.4-8.2) Albumin 4.0 gm/dl (3.4-5.0) Globulin 3.3 gm/dl (2.5-4.0) Albumin/Globulin Ratio 1.2 (0.9-2) Lipase 137 U/L (73-393) Thyroid Stimulating Hormone (TSH) 6.200 uIu/ml (0.300-4.500) Medications Administered Medications (Trade) Dose Ordered Sig/Claudy Route Start Time Stop Time Status Last Admin Dose Admin Sodium Chloride 1,000 ml @ 999 mls/hr Q1H1M STAT IV 01/12/18 07:01 01/12/18 08:01 DC 01/12/18 07:25 999 MLS/HR Ketorolac Tromethamine (Toradol Inj) 30 mg NOW STAT IV 01/12/18 07:01 01/12/18 07:05 DC 01/12/18 07:25 30 MG Ondansetron HCl (Zofran Inj) 4 mg NOW STAT IV 01/12/18 07:04 01/12/18 07:05 DC 01/12/18 07:26 4 MG Medical Decision Patient was seen and evaluated as above. She presents to us today with vomiting , sensation of feeling warm and cold, headache and neck pain. She notes that she has an EGD scheduled for tomorrow to further evaluate her chronic right upper quadrant abdominal pain. She is nontoxic on exam. Vital signs stable. Released visits were reviewed. Chronically she notes underlying right upper quadrant abdominal pain and intermittent difficulty urinating. She notes that she is being evaluated by specialties for this. She notes however she did have a radial scar removed from the right breast on Friday. She notes that the incision is doing well. She was feeling fine up until this morning with abrupt onset of vomiting at 0400 hrs. She also has a headache she describes as diffuse. She notes no difficulty speaking or unilateral weakness. IV access was initiated, and the above workup was performed. There is no concern for leukocytosis, anemia or metabolic abnormality other than TSH being elevated. Free T4 was ordered. She is to follow with her family doctor in regard to this finding. I did also a Lyme screen secondary to her presentation. She is to also follow with the family doctor for this. While here she was given fluids and Toradol as well as Zofran. I then spoke with her and the headache persisted. She was offered lumbar puncture as well as CT scan of the head and declined these respectively. She notes that she would like to go home and rest. She also declined Compazine and Benadryl. She certainly is to return the emergency Department for any new/concerning symptoms. She was educated upon management, educated upon worrisome symptoms in which to return, had questions answered prior to discharge, and was discharged home in good condition. She was noted to have 4+ bacteria in the urine but has no urinary symptoms. This will await culture. In the evaluation and treatment of this patient, the following differential diagnoses were considered: Migraine Headache, Intracranial Hemorrhage, Subdural Hematoma, Subarachnoid Hemorrhage, Cerebral Aneurysm, Temporal/Giant Cell Arteritis, Tension Headache, Meningitis, Encephalitis, or Hydrocephalus. I suspect the patient is likely experiencing a benign tension headache, and do not suspect meningitis. Impression Primary Impression: Headache Additional Impression: Vomiting Departure Information Dispostion Home / Self-Care Condition GOOD Referrals Rosa Hernandez (PCP) Patient Instructions [facility] Additional Instructions You have been treated in the Emergency Department for a Headache, vomiting, flu like symptoms. Please rest and drink plenty of fluids For pain control, you can use the following [id number] medicines: - Regular strength (325mg/tab) Tylenol (acetaminophen) 2 tabs every 4-6 hours as needed. Do not exceed 12 tablets in a 24 hour period. Avoid taking more than 3 grams (3000 mg) of Tylenol per day. This includes any other sources of acetaminophen you may take on a regular basis. - Regular strength (200 mg/tab) Advil (ibuprofen) 1-2 tabs every 4-6 hours as needed. Do not exceed a dose of 3200 mg per day. You should relax in a quiet, dark place for the rest of the day. Avoid any possible triggers including: cigarette smoke, caffeine, nicotine, chocolate, wine, beer, loud noises or music, or bright lights. You should schedule a follow-up appointment in 2-3 days with your Primary Care Provider or established Neurologist for further evaluation and treatment of your Headache. Return to the Emergency Department if your current symptoms worsen despite treatment course outlined above, or if you develop any of the following symptoms : intractable pain despite aforementioned treatment course, visual disturbances , loss of vision, unilateral weakness or facial drooping, slurring of speech, loss of coordination, or loss of consciousness. Problem Qualifiers
[2018-01-12 07:30] LABS: BASO % 0.4 %; BASO ABS # 0.03 K/uL (0-0.2); EOS % 1.9 %; EOS ABS # 0.16 K/uL (0-0.5); HEMATOCRIT 38.4 % (37-47); HEMOGLOBIN 13.6 g/dL (12.0-16.0); IG# 0.02 K/uL (0.00-0.02); LYMPH % 37.5 %; LYMPH ABS # 3.13 K/uL (1.2-3.4); MEAN CELL VOLUME 92.5 fL (80-100); MEAN CORPUSCULAR HEMOGLOBIN 32.8 pg (25-34); MEAN CORPUSCULAR HGB CONC 35.4 g/dl (32-36); MEAN PLATELET VOLUME 9.5 fL (7.4-10.4); MONO % 6.3 %; MONO ABS # 0.53 K/uL (0.11-0.59); NEUT % 53.7 %; NEUT ABS # 4.48 K/uL (1.4-6.5); PLATELET COUNT 229 K/uL (130-400); RED CELL DISTRIBUTION WIDTH CV 12.9 % (11.5-14.5); RED CELL DISTRIBUTION WIDTH SD 43.3 fL (36.4-46.3); WHITE BLOOD COUNT 8.35 K/uL (4.8-10.8)
[2018-01-12 07:45] LABS: CALCIUM 8.8 mg/dl (8.5-10.1); CREATININE 0.65 mg/dl (0.60-1.20); POTASSIUM 3.6 mmol/L (3.5-5.1); PTT PATIENT 24.5 SECONDS (21.0-31.0)
[2018-01-12 07:56] LABS: TOTAL PROTEIN 7.3 gm/dl (6.4-8.2)
[2018-01-12 08:12] LABS: INFLUENZA B ANTIGEN Neg for Influ B (NEG)
[2018-01-12] MEDS ORDERED: PROCHLORPERAZINE 5 MG/ML 2 ML VIAL IV STA (08:29)
[2018-01-12] MEDS ORDERED: DiphenhydrAMINE HCL 50 MG/ML VIAL IV STA (08:29)
[2018-01-12 09:20] VITALS: BP 99/66; PULSE 60; TEMP 36.7; O2SAT 95
== END 2018-01-12 09:21 | disposition home or self-care (01) ==
LOC: C.EDB 06:44 → C.EDA 09:21
DX: R51 Headache (principal); R11.10 Vomiting, unspecified; R79.89 Other specified abnormal findings of blood chemistry; Z98.890 Other specified postprocedural states; R10.11 Right upper quadrant pain; G89.29 Other chronic pain; F17.200 Nicotine dependence, unspecified, uncomplicated; Z80.9 Family history of malignant neoplasm, unspecified; Z82.49 Family history of ischemic heart disease and other diseases of the circulatory system